=== PATIENT | female | born 1985 | race Caucasian/White ===

== ENCOUNTER → 2016-07-24 | Outpatient (CLI) | payer OTHER ==
[~2016-07-24] MED LIST: IRON TABLETS325 MG OR; NAPROSYN 500MG500 MG PO; PERCOCET 5/3251 EACH PO; PRENATAL PLUS1 TA1 OR; SYNTHROID 0.00.05 MG PO; ZANTAC 150150 MG OR
[2016-07-24 13:15] LABS: BUN 13 mg/dL (7-18); GFR (ESTIMATED) 98 ML/MIN (59-)
== END ==
LOC: LAB 11:51
PROVIDERS: Nurse Practitioner Family
DX: E78.1 Pure hyperglyceridemia (principal); E03.9 Hypothyroidism, unspecified

== ENCOUNTER → 2017-02-17 | Outpatient (CLI) | payer OTHER ==
--- NOTE | 2017-02-17 16:57 | RADIOLOGY REPORT PS360 ---
US PREG COMP: INDICATION: 20 WEEK ANATOMICAL SURVEY ORDERING PHYSICIAN: Osman Easton MD PATIENT AGE: 31 years TECHNIQUE: ultrasound transabdominal scanning. COMPARISON: No previous relevant studies. FINDINGS: Single viable intrauterine gestation. Breech position at the end of the exam. Placenta: Anterior placenta grade 1. There is average amount fluid. The cervix appears satisfactory. Closed and measuring 3 cm in length. Complete survey performed and was unremarkable on the submitted images as in PACS. No discrete anomalies identified on survey imaging by technologist. Active fetus. Three-vessel cord with satisfactory umbilical cord insertion. 4- chamber heart noted. Survey of brain & ventricles. Face and neck survey unremarkable. Diaphragm and chest views unremarkable. Abdomen: Both kidneys noted and unremarkable. Stomach noted and satisfactory. Spine: Survey of the spine satisfactory with no anomalies identified nor imaged. Both arms and legs noted. Amniotic Fluid: Adequate. Maternal adnexa: No significant findings. Measurements: Average ultrasound age 20 weeks 3 days. Gestational Age 19 weeks 6 days. Estimated due date by ultrasound age 107/04/2017. Estimated weight 07/08/2017 grams. BPD = 20 weeks 3 days OFD = 21 weeks 3 days HC = 20 weeks 2 days AC = 20 weeks 4 days FL = 20 weeks 0 days Heart Rate = 150 BPM Cerebellum = 20 weeks 6 days Humerus = 20 weeks 5 days HC/AC is 1.16. CI is 73%. FL/BPD is 77%. FL/AC is 21%. IMPRESSION: There is a single live fetus with an average ultrasound age of 20 weeks 3 days. heart and body motion noted. No obvious anomalies. The fetus was in breech position at the end of the exam. The placenta is anterior and there is average amniotic fluid. Please see above for detail.
== END ==
LOC: RAD 12:59
DX: Z36 Encounter for antenatal screening of mother (principal)

== ENCOUNTER 2017-04-21 11:13 | Outpatient (CLI) | payer OTHER ==
[~2017-04-21] VITALS: Ht 170.2 cm; Wt 127.0 kg
[2017-04-21 12:03] VITALS: BP 133/82
[2017-04-21] MEDS ORDERED: CLARITIN 10MG T10 MG PO (12:08)
[2017-04-21] MEDS ORDERED: SUDAFED 12HR120 MG PO (12:09)
[2017-04-21] MEDS ORDERED: PROBIOTIC1 EAC5 PO (12:10)
[2017-04-21 12:26] LABS: LYMPH # 2.2 K/mm3 (0.7-4.5); LYMPH % 20.1 % (10-50.0)
[2017-04-21 12:34] LABS: HEMOGLOBIN 11.5 g/dL (12.2-16.2)
== END 2017-04-21 14:00 | disposition home or self-care (01) ==
LOC: OBOUT 11:13 → OB 11:14 → OBOUT 14:00
PROVIDERS: Nurse Practitioner Obstetrics & Gynecology
DX: O26.93 Pregnancy related conditions, unspecified, third trimester (principal); Z3A.28 28 weeks gestation of pregnancy; M54.5 Low back pain
CPT/HCPCS: J0595

== ENCOUNTER → 2017-05-03 | Outpatient (CLI) | payer OTHER ==
[~2017-05-03] MED LIST changes: +CLARITIN 10MG T10 MG PO; +PROBIOTIC1 EAC5 PO; +SUDAFED 12HR120 MG PO
== END ==
LOC: LAB 14:44
DX: N39.0 Urinary tract infection, site not specified (principal); Z34.80 Encounter for supervision of other normal pregnancy, unspecified trimester

== ENCOUNTER → 2017-05-12 | Outpatient (CLI) | payer OTHER ==
[~2017-05-12] MED LIST changes: +FLOMAX 0.4MG C0.4 MG PO; +LABETALOL HYDR200 M1 PO; +MAGNESIUM400 MG PO
== END ==
LOC: LAB 18:18
DX: N39.0 Urinary tract infection, site not specified (principal)

== ENCOUNTER 2017-05-15 15:30 | Outpatient (CLI) | payer OTHER ==
[~2017-05-15] VITALS: Ht 170.2 cm; Wt 126.6 kg
[~2017-05-15 15:30] MED LIST changes: -FLOMAX 0.4MG C0.4 MG PO; -LABETALOL HYDR200 M1 PO; -MAGNESIUM400 MG PO
[2017-05-15 15:44] VITALS: BP 134/80
[2017-05-15 16:04] LABS: URINE BILIRUBIN - DIPSTICK NEGATIVE (NEG); URINE BLOOD 2+ (NEG)
--- NOTE | 2017-05-16 21:40 | RADIOLOGY REPORT PS360 ---
US [id number] Ordering Physician: KAMRAN JACQUES Patient Age: 31 years: Female HISTORY: KIDNEY STONE RT SIDEright flank pain. Passing to kidney stones past 2 weeks.. Patient 32 weeks TECHNIQUE: COMPARISON :No previous relevant studies ultrasound February 2017 did not include the maternal kidneys FINDINGS RIGHT KIDNEY:. Enlarged right kidney overall measures up to 13.25 cm in length X as 5.7 cm x 8.2 cm .. Prominent hydronephrosis of the right kidney. Calyceal dilatation most evident towards upper pole. -Where the distended calyx here measuring 4.5 x 3.7 cm. . cannot exclude associated peripelvic cyst but mainly generous dilated calyx. The proximal right ureter is visualized and noted to be dilated as well measuring up to 1.7 cm diameter just below the right renal pelvis and then tapering slightly from this point. It apparently was not followed to the pelvis. The prominent hydronephrosis is somewhat more than typically seen with hydronephrosis of but could be due to such. Nonetheless the history likely does support an reflect a recently passed stone. LEFT KIDNEY. 10.9 cm length as 5.1 cm x 7.05 cm. . Cortex well-maintained in both kidneys. . No additional renal masses. No perinephric fluid collections. No free fluid. IMPRESSION: 1. Enlarged right kidney with prominent right hydronephrosis.. A dilated proximal right ureter also observed. Findings reflect likely combination of hydronephrosis hydronephrosis of along with recently passed stone 2. Left kidney unremarkable
[2017-05-25] MEDS ORDERED: MAGNESIUM400 MG PO (14:05)
[2017-05-25] MEDS ORDERED: LABETALOL HYDR200 M1 PO (14:05)
[2017-05-25] MEDS ORDERED: FLOMAX 0.4MG C0.4 MG PO (14:05)
== END 2017-05-15 17:35 | disposition home or self-care (01) ==
LOC: OBOUT 15:30 → OB 15:30 → OBOUT 17:35
PROVIDERS: Obstetrics & Gynecology
DX: O26.93 Pregnancy related conditions, unspecified, third trimester (principal); Z3A.32 32 weeks gestation of pregnancy; N20.0 Calculus of kidney

== ENCOUNTER → 2017-05-19 | Outpatient (CLI) | payer OTHER ==
[~2017-05-19] MED LIST changes: +FLOMAX 0.4MG C0.4 MG PO; +LABETALOL HYDR200 M1 PO; +MAGNESIUM400 MG PO
[2017-05-19 09:58] LABS: BUN 9 mg/dL (7-18)
[2017-05-19 10:01] LABS: GFR (ESTIMATED) 117 ML/MIN (59-)
== END ==
LOC: LAB 08:27
PROVIDERS: Nurse Practitioner Obstetrics & Gynecology
DX: Z34.80 Encounter for supervision of other normal pregnancy, unspecified trimester (principal); N39.0 Urinary tract infection, site not specified